=== PATIENT | female | born 1990 | race Hispanic/Latino ===

== ENCOUNTER 2018-09-17 13:46 | Emergency (ER) | payer OTHER ==
[~2018-09-17] VITALS: Ht 162.6 cm; Wt 90.7 kg
[2018-09-17 14:20] VITALS: BP 132/78
[2018-09-17] MEDS ORDERED: KETOROLAC TROMETHAMINE 60 MG/2 ML VIAL IM ONE (15:00)
[2018-09-17] MEDS ORDERED: ALPRAZOLAM 0.5 MG TAB PO ONE (15:00)
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
--- NOTE | 2018-09-17 15:01 | Diagnostic Imaging Report ---
Lumbar Spine Radiographs: 3 views HISTORY: Pain COMPARISON: None available. DISCUSSION: Some of the osseous structures are partially obscured by stool and bowel gas. There are five non-rib bearing lumbar vertebral bodies. The alignment of the spine is within normal limits. No displaced fracture or compression deformity is identified. Vertebral body heights are maintained. IMPRESSION: No acute radiographic abnormality. Signed by: Dr. Blake Light MD on 09/17/2018 2:58 PM
== END 2018-09-17 15:12 | disposition home or self-care (01) ==
LOC: FSED 13:46
DX: M54.2 Cervicalgia (principal); R51 Headache; M54.5 Low back pain; S16.1XXA Strain of muscle, fascia and tendon at neck level, initial encounter; S33.5XXA Sprain of ligaments of lumbar spine, initial encounter; V43.52XA Car driver injured in collision with other type car in traffic accident, initial encounter; Y92.488 Other paved roadways as the place of occurrence of the external cause
CPT/HCPCS: 72040; 72100; 81025; 99283; J1885

== ENCOUNTER 2018-12-18 02:45 | Emergency (ER) | payer OTHER ==
[~2018-12-18] VITALS: Ht 162.6 cm; Wt 90.7 kg
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
[2018-12-18] MEDS ORDERED: KETOROLAC TROMETHAMINE 30 MG/ML VIAL IV ONE (03:15)
[2018-12-18] MEDS ORDERED: FAMOTIDINE 20 MG/2 ML VIAL IV ONE (03:15)
[2018-12-18] MEDS ORDERED: ONDANSETRON HCL INJ 2MG/ML 2ML 2 MG/ML VIAL IV ONE (03:15)
[2018-12-18] MEDS ORDERED: ACETAMINOPHEN 325 MG TAB PO ONE (03:15)
--- NOTE | 2018-12-18 03:45 | Diagnostic Imaging Report ---
CXR 2 VIEW - HOPD, Technique: CXR 2 VIEW - HOPD Comparison: None Clinical history: Right-sided chest pain DISCUSSION: Unremarkable appearance of the heart, mediastinum, lungs and pleural spaces. IMPRESSION: No acute abnormality Signed by: Dr Flaca Rojas MD on 12/18/2018 3:42 AM
--- NOTE | 2018-12-18 06:02 | Diagnostic Imaging Report ---
EXAM: CT ABD/PEL WITH CONTRAST-HOPD DATE: 12/18/2018 12:00 AM INDICATION: Abdominal pain COMPARISON: None TECHNIQUE: The abdomen and pelvis were scanned using a multidetector helical scanner. Coronal and sagittal reformations were obtained. CT low dose techniques were utilized, as applicable. IV Contrast: 100 ml Isovue 300/370 FINDINGS: LOWER THORAX: No consolidations LIVER/BILIARY: No masses. No ductal dilatation. GALLBLADDER: Mildly distended containing several small stones. SPLEEN: Unremarkable PANCREAS: Unremarkable ADRENALS: No nodules KIDNEYS: No suspicious renal masses. No hydronephrosis. GI TRACT: No wall thickening or evidence of obstruction. Visualized appendix appears normal. VESSELS: Unremarkable PERITONEUM/RETROPERITONEUM: No free air or fluid LYMPH NODES: No lymphadenopathy REPRODUCTIVE ORGANS/BLADDER: Simple appearing 5.2 cm right adnexal cyst. SOFT TISSUES: Unremarkable BONES: No suspicious bone lesions. IMPRESSION: 1. Mildly distended gallbladder containing stones, but without CT evidence of acute cholecystitis. 2. Simple appearing 5.2 cm right adnexal/ovarian cyst. Consider nonemergent follow-up pelvic ultrasound. Signed by: Dr Flaca Rojas MD on 12/18/2018 5:59 AM
[2018-12-18] MEDS ORDERED: MORPHINE SULFATE INJ 4 MG/ML INJ 1ML IV STA (06:27)
[2018-12-22] MEDS ORDERED: TYLENOL #4 PO (13:38)
[2018-12-22] MEDS ORDERED: ZOFRAN8 MG PO (13:38)
== END 2018-12-18 06:40 | disposition home or self-care (01) ==
LOC: FSED 02:45
DX: R10.11 Right upper quadrant pain (principal); R11.0 Nausea; K80.20 Calculus of gallbladder without cholecystitis without obstruction; K21.9 Gastro-esophageal reflux disease without esophagitis
CPT/HCPCS: 71046; 74177; 80053; 80076; 80307; 81003; 81025; 85025; 85379; 99284; J1885; J2405

== ENCOUNTER → 2018-12-25 | Day surgery (SDC) | payer OTHER ==
[2018-12-22 14:03] LABS: BASOPHILS # (AUTO) 0.1 (0.0-0.1); BASOPHILS % 0.8 % (0.0-1.0); EOSINOPHILS # (AUTO) 0.2 (0.0-0.4); EOSINOPHILS % 2.5 % (0.0-6.0); HEMATOCRIT 38.9 % (34.2-44.1); HEMOGLOBIN 12.9 g/dL (12.0-16.0); LYMPHOCYTES % 30.7 % (18.0-39.1); MEAN CORPUSCULAR HEMOGLOBIN 29.3 pg (28-32); MEAN CORPUSCULAR HGB CONC 33.2 g/dL (31-35); MEAN CORPUSCULAR VOLUME 88.2 fL (81-99); MONOCYTES # (AUTO) 0.5 (0.2-0.8); MONOCYTES % 5.4 % (4.4-11.3); NEUTROPHILS # (AUTO) 5.8 (2.1-6.9); NEUTROPHILS % 60.2 % (38.7-80.0); PLATELET COUNT 261 x10e3/uL (140-360); RED BLOOD COUNT 4.41 x10e6/uL (3.6-5.1); RED CELL DISTRIBUTION WIDTH 13.2 % (11.7-14.4)
[2018-12-22 14:07] LABS: BILIRUBIN,URINE NEGATIVE (NEGATIVE); CLARITY,URINE CLEAR (CLEAR); COLOR,URINE YELLOW (YELLOW); KETONES,URINE NEGATIVE (NEGATIVE); LEUKOCYTE ESTERASE ,URINE NEGATIVE (NEGATIVE); NITRITE,URINE NEGATIVE (NEGATIVE); PROTEIN,URINE DIPSTICK NEGATIVE (NEGATIVE); URINE UROBILINOGEN 0.2 mg/dL (0.2 - 1)
[2018-12-22 14:32] LABS: ALANINE AMINOTRANSFERASE 34 IU/L (0-55); ALBUMIN 3.8 g/dL (3.5-5.0); ALBUMIN/GLOBULIN RATIO 1.1 (0.8-2.0); ALKALINE PHOSPHATASE 60 IU/L (40-150); ANION GAP 16.5 mmol/L (8-16); BLOOD UREA NITROGEN 17 mg/dL (7-26); BUN/CREATININE RATIO 24 (6-25); CALCIUM 9.2 mg/dL (8.4-10.2); CARBON DIOXIDE 20 mmol/L (22-29); CHLORIDE 107 mmol/L (98-107); EST GLOMERULAR FILTRATION RATE > 60 ML/MIN (60-); GLUCOSE 77 mg/dL (74-118); POTASSIUM 4.5 mmol/L (3.5-5.1); SODIUM 139 mmol/L (136-145)
[~2018-12-25] MED LIST: BUPIVACAINE 0.5%/EPI 30 ML SDV INJ ONE; DEXAMETHASONE SOD PHOS INJ 4 MG/ML VIAL ONE; FENTANYL CITRATE/PF 100MCG/2 ML INJ ONE; KETOROLAC TROMETHAMINE 30 MG/ML VIAL ONE; LIDOCAINE HCL 2% LOCAL INJ 5 ML SDV VIAL INJ ONE; MEPERIDINE HCL INJ 25 MG/ML VIAL ONE; METOCLOPRAMIDE HCL 10 MG/2ML VIAL ONE; MIDAZOLAM HCL 2 MG/2 ML VIAL ONE; ONDANSETRON HCL INJ 2MG/ML 2ML 2 MG/ML VIAL ONE; PROPOFOL IV EMULSION 10 MG/ML 20 ML VIAL ONE; ROCURONIUM BROMIDE 10 MG/ML 5ML VIAL ONE; SEVOFLURANE INHAL SOLN 250 ML PEN BTL ONE; TYLENOL #4 PO; ZOFRAN8 MG PO
--- NOTE | 2018-12-25 15:29 | Operative Report ---
DATE OF PROCEDURE: December 25, 2018 PREOPERATIVE DIAGNOSES 1. Cholecystitis and cholelithiasis. 2. Pelvic mass. POSTOPERATIVE DIAGNOSES 1. Cholecystitis and cholelithiasis. 2. Right ovarian cyst. OPERATIONS PERFORMED 1. Laparoscopic cholecystectomy. 2. Laparoscopic resection of right ovarian cyst. ANESTHESIA: General. COMPLICATIONS: None. ESTIMATED BLOOD LOSS: Minimal. DESCRIPTION OF PROCEDURE: With the patient lying in bed in the supine position under good general endotracheal anesthesia, the abdomen was prepped with Betadine solution and draped in the usual manner. A Veress needle was introduced into the umbilicus and pneumoperitoneum was established without any difficulty. An 11-mm trocar was placed into the umbilicus. A 10 mm video laparoscope was placed into the intra-abdominal cavity. Under direct vision, three 5-mm trocars were placed in the right subcostal region. Another 5-mm trocar was placed in the suprapubic region. Pelviscopy at this point revealed a normal appearing uterus. The left ovary and adnexa were also normal. On right side, however, there was a cystic mass in the right ovary, which was a simple cyst and was probably about 4 or 5 cm in size. We went ahead and removed part of the wall of the cyst and sent that off to be examined. This is clearly just a simple cyst. It was totally and completely drained without any difficulty or any bleeding. After this was done, laparoscopy of the upper abdomen revealed the gallbladder to contain multiple stones and to have some adhesions in the lower half. Otherwise, the rest of the abdominal exploration was within normal limits. The adhesions to the gallbladder were then slowly and carefully taken down. The peritoneum overlying the neck of the gallbladder was then opened and the cystic duct was identified. The cystic duct was followed to its junction with the common duct. The cystic duct was then circumferentially dissected away from the common duct, doubly clipped and divided. The cystic artery was similarly doubly clipped and divided. The gallbladder was then slowly and carefully taken off of the liver bed using the cautery scissors. Perfect hemostasis was ascertained. The gallbladder was grasped through the umbilical port and removed without any difficulty. Video laparoscopy was then again carried out. The liver bed was found to be perfectly dry. All of the excess fluid was aspirated. The pneumoperitoneum was evacuated and all the trocars were removed under direct vision. The midline fascia at the umbilicus was then closed with a figure-of-8 of 0 Vicryl. All layers were infiltrated on the way out with a solution of 0.25% Marcaine. Subcutaneous tissue was approximated with 3-0 Vicryl. The skin was closed with subcuticular 5-0 Vicryl. Benzoin, Steri-Strips and Band-Aids were applied. The sponge, lap and needle count was correct. The patient tolerated the procedure well and returned to the recovery room in stable condition. Job#: [id number]
[2018-12-25 18:00] VITALS: BP 113/76
== END | disposition home or self-care (01) ==
LOC: OR 06:27
PROVIDERS: ATTEND Surgery
DX: K80.10 Calculus of gallbladder with chronic cholecystitis without obstruction (principal); Z01.812 Encounter for preprocedural laboratory examination; N83.291 Other ovarian cyst, right side
CPT/HCPCS: 36415; 47562; 58662; 80053; 81003; 81025; 85025; 88304; 88305; C1766; J1100; J1885; J2001; J2175; J2250; J2405; J2704; J2765